=== PATIENT | male | born 1960 | race American Indian/Alaskan Native ===

== ENCOUNTER 2020-07-10 07:39 | Outpatient (CLI) | payer OTHER ==
--- NOTE | 2020-07-20 16:58 | XRay Report ---
CHEST 2 VIEWS INDICATION / CLINICAL INFORMATION: COUGH(R05). FINDINGS: SUPPORT DEVICES: None. HEART / MEDIASTINUM: No significant abnormality. LUNGS / PLEURA: No significant pulmonary or pleural abnormality. No pneumothorax. ADDITIONAL FINDINGS: No significant additional findings. IMPRESSION: 1. No acute findings. Signer Name: Gerardo Sousa MD Signed: 07/20/2020 4:53 PM Workstation Name: [employer]
== END 2020-07-10 07:40 | disposition home or self-care (01) ==
LOC: XRAY 07:39
PROVIDERS: ATTEND Internal Medicine
DX: R05 Cough (principal)
CPT/HCPCS: 71046